=== PATIENT | female | born 1995 | race Caucasian/White ===

== ENCOUNTER 2017-06-03 21:29 | Emergency (ER) | payer BC, OTHER ==
[~2017-06-03] VITALS: Ht 167.6 cm; Wt 75.4 kg
[2017-06-03 21:32] VITALS: BP 126/85; PULSE 99; TEMP 37; O2SAT 99; Ht 167.6 cm; Wt 75.4 kg
[2017-06-03] MEDS ORDERED: XYLOCAINE 1%/SOD BICARB 20 ML VIAL INFIL ONE (21:45)
[2017-06-03] MEDS ORDERED: LEVOIUD INT UTER (22:10)
[2017-06-03] MEDS ORDERED: CETI10TA84 PO (22:10)
[2017-06-03] MEDS ORDERED: FLUT0.15 NAE (22:10)
--- NOTE | 2017-06-03 22:19 | EMERGENCY ROOM VISIT NOTE ---
ED Visit Note First contact with patient: 21:35 CHIEF COMPLAINT: Hand laceration HISTORY OF PRESENT ILLNESS: This 22-year-old female patient presents to the emergency department after cutting the left hand on a piece of glass at work. The bleeding has stopped. Denies weakness or numbness of the hand or fingers. The patient rates the pain as stinging and 3/10. The patient denies any other injuries. The patient's Tetanus shot is up to date. REVIEW OF SYSTEMS: A 6 system review of systems was completed with positives and pertinent negatives listed in the HPI. ALLERGIES: NKDA MEDICATIONS: Reviewed PMH: Otherwise healthy SOCIAL HISTORY: She does not smoke. She occasionally drinks alcohol. She is employed. PHYSICAL EXAM: Vital Signs: Reviewed Nurse's notes, vital signs stable. GENERAL : 22-year-old female, in no acute distress, well-developed, well-nourished. SKIN: There is a 3 cm long laceration on the hypothenar aspect of the left hand. The edges gape apart with traction. There is no foreign material in the wound and it looks clean. There is no active bleeding. No deep structures such as tendons, bones, or significant blood vessels are seen in the base of the wound. Normal strength and movement of the fingers and wrist. Capillary refill less than 2 seconds. Normal sensation to light and sharp touch. EMERGENCY DEPARTMENT COURSE: I examined the patient. Verbal consent was obtained to perform the procedure. Using sterile technique the wound was cleansed with Betadine. The area was sterilely draped. 4 ml of 1% buffered lidocaine was used to anesthetize the laceration on the hand. Once the patient was anesthetized, the wound was copiously irrigated under pressure with sterile saline. The wound was explored and was as described above. The laceration was repaired using 6 simple interrupted 5-0 nylon sutures with the wound edges being well approximated. The patient tolerated the procedure well. Hemostasis was achieved. The area was cleaned with sterile saline and dressed with bacitracin ointment and bandage. The patient was discharged home in good condition. DIAGNOSIS: Hand laceration DISCHARGE INSTRUCTIONS & TREATMENT: Keep wound clean. It is okay to gently wash the area with soapy water. Do not submerse it in water for long periods of time such as swimming, going in hot tubs or taking baths until the sutures come out. Do not allow any crusting or dried blood to accumulate on sutures. If this occurs, use a 1:1 solution of hydrogen peroxide/water on a Q-tip to clean the wound. Use an antibiotic ointment for 3-4 days, then let wound dry. Suture removal in 14 days. Return sooner for any signs of infection ( increasing redness, swelling, drainage). Ice and elevate for swelling and pain. Ibuprofen 600 mg and Tylenol 1000 mg every 6 hrs for pain.
== END 2017-06-03 22:28 | disposition home or self-care (01) ==
LOC: C.EDB 21:30 → C.EDD 22:28
DX: S61.412A Laceration without foreign body of left hand, initial encounter (principal); W25.XXXA Contact with sharp glass, initial encounter